=== PATIENT | male | born 1960 | race Caucasian/White ===

== ENCOUNTER → 2018-02-07 | Outpatient (CLI) | payer MEDICARE | LOC: GMAJ 10:41 | PROVIDERS: ATTEND Family Medicine | DX: Z12.5 Encounter for screening for malignant neoplasm of prostate (principal) ==

== ENCOUNTER → 2019-02-25 | Outpatient (CLI) | payer MEDICARE | LOC: GMAJ 11:01 | PROVIDERS: ATTEND Family Medicine | DX: Z12.5 Encounter for screening for malignant neoplasm of prostate (principal) ==

== ENCOUNTER 2019-12-22 05:50 | Day surgery (SDC) | payer MEDICARE ==
[2019-12-22] MEDS ORDERED: LIDOCAINE 1% 10 ML VIAL INJ ONE ×2 (07:27→09:50)
[2019-12-22] MEDS ORDERED: BUPIVACAINE 0.5% 30 ML VIAL INJ ONE ×2 (07:27→09:50)
[2019-12-22] MEDS ORDERED: BETAMETHASONE ACETATE/BETAMETH 6 MG/ML VIAL IM ONE ×2 (09:52→09:58)
--- NOTE | 2019-12-29 09:41 | RAD ---
EXAM DESCRIPTION: Fluoroscopy Up to 1Hr CLINICAL HISTORY: 59 years Male, SI JOINT INJECTION COMPARISON: None. IMPRESSION: Multiple intraoperative fluoroscopic images saved for the benefit of the surgeon. Right SI joint injection. Please see procedure report for full details. Fluoroscopy time: 22 seconds Fluoroscopic images: 1 Electronically signed by: Wilbur Dang MD 12/29/2019 9:39 AM CDT
== END 2019-12-22 10:15 | disposition home or self-care (01) ==
LOC: AMB 05:50
PROVIDERS: ATTEND Family Medicine Sports Medicine
DX: M46.1 Sacroiliitis, not elsewhere classified (principal); M47.816 Spondylosis without myelopathy or radiculopathy, lumbar region; M25.552 Pain in left hip; I11.0 Hypertensive heart disease with heart failure; I50.9 Heart failure, unspecified; I25.10 Atherosclerotic heart disease of native coronary artery without angina pectoris; E78.00 Pure hypercholesterolemia, unspecified; J44.9 Chronic obstructive pulmonary disease, unspecified; K21.9 Gastro-esophageal reflux disease without esophagitis; E78.2 Mixed hyperlipidemia; Z87.891 Personal history of nicotine dependence; Z88.2 Allergy status to sulfonamides; Z79.899 Other long term (current) drug therapy; Z79.82 Long term (current) use of aspirin; Z79.891 Long term (current) use of opiate analgesic
CPT/HCPCS: 76000; G0260

== ENCOUNTER → 2020-02-25 | Outpatient (CLI) | payer MEDICARE ==
--- NOTE | 2020-02-25 14:17 | CT ---
EXAM DESCRIPTION: CTA Chest: Computed Tomography. CLINICAL HISTORY: COVID-19. Positive. Shortness of breath. History of cardiovascular disease. COMPARISON: None. TECHNIQUE: Spiral-axial scans at 2.5 x 2.5 mm mm intervals through the pulmonary arteries and chest after bolus infusion of IV contrast. Lung algorithm 1.25 x 2.5-mm axial reconstructions. Coronal and sagittal 2.0 Mm reconstructions. 10.0 mm PE oblique 3-D reformatted images. No adverse reactions. Total Exam DLP: 101 mGy-cm. This exam was performed according to our departmental CT dose-optimization program which includes automated exposure control, adjustment of the mA and/or kV according to patient size and/or use of iterative reconstruction technique; to reduce radiation dose to as low as reasonably achievable (ALARA). FINDINGS: Pulmonary arteries: The vessels are well demonstrated with contrast density greater than the left heart and aorta. No filling defects from the main pulmonary artery to the bilateral peripheral subsegmental branches. The peripheral arterial branches are symmetric in caliber bilaterally. No abnormal vascular anatomy is noted. Heart and other great vessels: Minimal intimal wall thickening in the aorta and minimal atherosclerotic calcification. Proximal brachiocephalic vessels demonstrate calcifications. Lungs and airways: Dilated airspaces with multiple subpleural blebs and bulla more prevalent in the upper lung constantino and decreasing in the lower lung constantino. Multiple posterior subpleural dilated airspaces consistent with "honeycombing" in the bilateral lower lobes, relatively symmetric. Minimal honeycombing subpleural and laterally in the lingula and right middle lobe. No ground glass opacities bilaterally. No focal infiltrates. No abnormal nodules or mass. Pleura: Bilateral thickening including the apices with no acute process. Mediastinum and loyd: scatter artifact from dense PA contrast. Bilateral hilar nodes are not enlarged. Other small mediastinal nodes. No dominant soft tissue mass or abnormal enhancement. Mediastinal lipomatosis. Soft tissue neck, chest wall, and axillae: Small bilateral nodes in the axillary regions. Upper abdomen: Partial visualization of the adrenal glands, spleen, pancreas, and gallbladder are unremarkable. Steatosis of the liver. Osseous structures: Spondylosis thoracic and lower cervical spine. [id number] arthrosis. IMPRESSION: 1. No CT findings present to indicate pneumonia. Note: CT may be negative in the early stages of COVID-19 pneumonia. Reference: https://pubs.rsna.org/doi/full/10.1148/ryct.3384325841 . 2. Emphysematous changes consistent with clinical diagnosis of COPD bilaterally. Electronically signed by: Boaz Castillo MD 02/25/2020 2:15 PM [facility]
== END ==
LOC: GMAJ 12:04
PROVIDERS: ATTEND Family Medicine
DX: U07.1 COVID-19 (principal); I50.23 Acute on chronic systolic (congestive) heart failure; J43.9 Emphysema, unspecified